=== PATIENT | male | born 1970 | race Caucasian/White ===

== ENCOUNTER 2017-05-17 08:03 | Day surgery (SDC) | payer OTHER ==
[~2017-05-17] VITALS: Ht 180.3 cm; Wt 93.0 kg
[2017-05-17] VITALS (9 sets, daily range): BP systolic 124–148; BP diastolic 77–89
[2017-05-17] MEDS ORDERED: HEParin (CATH LAB) 2,000 ML IV ONE (08:36)
[2017-05-17] MEDS ORDERED: LIDOCAINE 1% INJ 50 ML (XYLOCAINE) VIAL ONE (08:36)
[2017-05-17] MEDS ORDERED: NS IV 1000 ML 1,000 ML ONE (08:36)
[2017-05-17 09:39] LABS: HEMOGLOBIN 15.6 G/DL (13.3-17.7); RED BLOOD COUNT 5.07 10^6/uL (4.35-5.85); RED CELL DISTRIBUTION WIDTH 12.7 % (10.0-14.5); WHITE BLOOD COUNT 8.4 10^3/uL (4.3-11.0)
[2017-05-17] MEDS ORDERED: NS IV 1000 ML 1,000 ML IV SCH ×2 (09:45→13:56)
[2017-05-17] MEDS ORDERED: INFLUENZA TRIvalent 2017-2018 0.5 ML/45 MCG SYR IM ONE (10:00)
[2017-05-17] MEDS ORDERED: ASPI-586 PO (10:03)
[2017-05-17] MEDS ORDERED: METO-351 PO (10:03)
[2017-05-17 10:04] LABS: ALANINE AMINOTRANSFERASE 36 U/L (0-55); ALBUMIN 4.2 GM/DL (3.2-4.5); ALKALINE PHOSPHATASE 67 U/L (40-136); BILIRUBIN,TOTAL 0.7 MG/DL (0.1-1.0); BUN/CREATININE RATIO 14; CALCIUM 9.4 MG/DL (8.5-10.1); CARBON DIOXIDE 28 MMOL/L (21-32); CHLORIDE 103 MMOL/L (98-107); CHOLESTEROL 220 MG/DL (< 200); CREATININE SERUM 0.91 MG/DL (0.60-1.30); GFR ESTIMATED > 60; GLUCOSE 91 MG/DL (70-105); HDL CHOLESTEROL 59 MG/DL (40-60); POTASSIUM 4.2 MMOL/L (3.6-5.0); SODIUM 139 MMOL/L (135-145); TOTAL PROTEIN 7.5 GM/DL (6.4-8.2); TRIGLYCERIDES 196 MG/DL (<150); VLDL CHOLESTEROL 39 MG/DL (5-40)
[2017-05-17] MEDS ORDERED: fentaNYL INJECTION 100 MCG/2 ML AMP ONE (10:50)
[2017-05-17] MEDS ORDERED: MIDAZOLAM 5 MG/5 ML (VERSED) VIAL ONE (10:50)
[2017-05-17] MEDS ORDERED: diphenhydrAMINE 50 MG/ML INJ (BENADRYL) ONE (10:50)
--- NOTE | 2017-05-17 11:27 | Cardiac Procedure Note-CS/ASA ---
Pre-Procedure Note Pre-Op Procedure Note H&P Reviewed The H&P was reviewed, patient examined and no changes noted. Date H&P Reviewed: May 17, 2017 Time H&P Reviewed: : Conscious Sedation Pre-Proced Time Reviewed: ASA Class: 3 Airway Mallampati Classification: (ho-chunk appropriate class) I. II. III, IV Lungs Heart ASA score ASA 1: a normal healthy patient ASA 2: a patient with a mild systemic disease (mid diabetes, controlled hypertension, obesity ASA 3: a patient with a severe systemic disease that limits activity (angina , COPD, prior Myocardial infarction) ASA 4: a patient with an incapacitating disease that is a constant threat to life (CHF, renal failure) ASA 5: a moribund patient not expected to survive 24 hrs. (ruptured aneurysm) ASA 6: a declared brain patient whose organs are being harvested. For emergent operations, add the letter E after the classification Grade 2 Sedation Plan: Analgesia, Amnesia, Plan communicated to team members, Discussed options with patient/fam, Discussed risks with patient/fam Note The patient is an appropriate candidate to undergo the planned procedure, sedation, and anesthesia. The patient immediately re-assessed prior to indication. ELKE COYLE MD FACP FAC CCDS May 17, 2017 11:27
[2017-05-17] MEDS ORDERED: PATIENT MAY USE OWN MEDS, ALL PO SCH (14:00)
[2017-05-17] MEDS ORDERED: FURO40TA4 PO (14:04)
[2017-05-17] MEDS ORDERED: POTA10TA PO (14:04)
--- NOTE | 2017-05-17 14:05 | Discharge Inst-Post CATH ---
Discharge Inst-CATH Post Cardiac Cath D/C Inst Follow Up/Plan F/u with Dr Gaston in one week CARDIAC CATH DISCHARGE INSTRUCTIONS *Hold Metformin for 48 hours post heart cath. ACTIVITY * Go Home directly and rest. * Limit activity of the leg (or wrist if it was used) for 7 days including aerobics, swimming, jogging, bicycling, etc. * Restrict stair-climbing for 7 days if possible, if not, climb up with your non -cath leg, then bring together on the same step. * Avoid lifting, pushing, pulling or excessive movement of the affected extremity for 7 days. * Customary sexual activity may be resumed after 2 days-use caution not to use a position that strains or causes pain to the affected extremity. * No driving for 24 hours. * NO SMOKING. * Avoid straining for bowel movements for 7 days. * Gentle walking on level ground is allowed. * Returning to work will depend on the type of procedure and the results. Your doctor will discuss this with you. CALL YOUR DOCTOR FOR ANY OF THE FOLLOWING: *If bleeding from the puncture site occurs- Apply gentle pressure to site with clean cloth and call your doctor or EMS. * If a knot or lump forms under the skin, increases in size, or causes pain. * If bruising appears to be worsening or moving further down your leg instead of disappearing. * Temperature above 101 F. CARE OF YOUR GROIN INCISION; * Bruising or purple discoloration of the skin near the puncture site is common. * You may shower only, no bathtub bathing for 5 days. Be careful to avoid slipping as your leg may feel stiff. * If a closure device was used on your femoral artery, please see the attached guide regarding care of the device and your leg. * REMOVE the dressing from your groin the next day after your procedure in the shower. CARE OF YOUR WRIST INCISION; * Bruising or purple discoloration of the skin near the puncture site is common. * You may shower. * DO NOT submerge wrist. * Remove dressing in 24 hours. ELKE GASTON MD [facility] CCDS May 17, 2017 14:05
--- NOTE | 2017-05-17 14:05 | Discharge Inst-Cardiology ---
Discharge Inst-Cardiac Discharge Medications New Medications: Furosemide (Furosemide) 40 Mg Tablet 40 MG PO DAILY PRN for SHORTNESS OF BREATH, #30 TAB 3 Refills Potassium Chloride (K-Tab ER) 10 Meq Tablet.er 10 MEQ PO DAILY PRN for take if you take furosemide, #30 TAB 3 Refills Continued Medications: Aspirin (Aspir 81) 81 Mg Tablet.dr 81 MG PO DAILY, TAB Metoprolol Succinate (Toprol Xl) 25 Mg Tab.er.24h 25 MG PO DAILY, TAB Orders-Post D/C & Referrals Pneu Vac Indicated: Yes ELKE COYLE MD FACP FAC CCDS May 17, 2017 14:05
--- NOTE | 2017-05-17 14:29 | CARDIAC CATHETERIZATION ---
DATE OF SERVICE: 05/17/2017 PRIMARY PHYSICIAN: Natalia Rodrigues MD The patient is a 47-year-old man who has had relatively nonspecific symptoms in the recent past. He was noted to have a cardiac murmur by Dr. Rodrigues. Echocardiography showed posterior mitral valve prolapse and significant mitral regurgitation. Cardiac catheterization was carried out today after having obtained an informed consent. PROCEDURE: He was brought to the cardiac catheterization laboratory in a fasting state. Right groin was prepared and draped in usual sterile fashion. 1% Lidocaine local anesthesia. Modified Seldinger technique used to advance a 5-Lao sheath in the right femoral artery and a 7-Lao sheath into the right femoral vein. We first carried out right heart catheterization. We advanced a 7-Lao [place]-Mayra catheter to the pulmonary artery and pulmonary artery pressure was measured. We measured pulmonary wedge pressure, right ventricular pressure and right atrial pressure. We carried out cardiac output measurement using thermodilution. We measured oxygen saturation in various heart chambers. The [place]-Mayra catheter was then removed. We used the arterial sheath to advance a 5-Lao pigtail catheter into the left ventricle. Left ventricular pressures were measured. Left ventricular angiography was carried out. The catheter was pulled back into the aortic arch and aortic arch angiography was performed. We then used a 5-Lao JL4 catheter for left coronary angiography and 5-Lao JR4 for right coronary angiography. Following removal of the diagnostic catheters, angiography of the right femoral artery was carried out through the sheath. Mynx was used to achieve hemostasis, used to achieve arterial hemostasis. Manual pressure was achieved venous hemostasis. Initially, he tolerated the procedure well. HEMODYNAMICS: Pulmonary artery pressure is 32/16 with a mean of 22 mmHg. Mean pulmonary wedge pressure is 14 mmHg. Right ventricular pressure is 36/11. Mean right atrial pressure is 8 mmHg. Cardiac output by a thermodilution is 5.15 with a thermodilution cardiac index of 2.42. Pulmonary vascular resistance is 1.35 Wood units. Left ventricular end-diastolic pressure at baseline is 17 mmHg. There was no significant pressure gradient on pullback across the aortic valve. LEFT VENTRICULAR ANGIOGRAPHY: Left ventricular angiography was carried out in the right anterior oblique and the left anterior oblique projections. Global left ventricular systolic function is normal. Left ventricular ejection fraction is approximately 65%. There is 3 to 4+ mitral regurgitation (on a scale of four). AORTIC ARCH ANGIOGRAPHY: Aortic arch angiography does not indicate any thoracic aortic aneurysm, dissection or enlargement. Neck arteries, to the extent visualized, do not exhibit any significant disease. CORONARY ANGIOGRAPHY: Left main coronary artery, left anterior descending artery, left circumflex artery, and right coronary artery are all angiographically normal. CONCLUSIONS: 1. Moderately severe to severe mitral regurgitation. 2. Angiographically normal coronary arteries. 3. Normal global left ventricular systolic function with ejection fraction of 65%. 4. Mild to moderate elevation of left ventricular end-diastolic pressure. 5. Mild elevation of pulmonary wedge pressure. 6. Borderline pulmonary hypertension. DISCUSSION AND RECOMMENDATIONS: Based on results of the study, we recommend consideration of mitral valve repair. This issue is being discussed with him and his family. Job ID: [id number] DocumentID: [id number] Dictated Date: 05/17/2017 12:32:38 Stain Dipper Date: 05/17/2017 14:28:59 Dictated By: ELKE COYLE MD, MA, FACP, FACC, MTDD
== END 2017-05-17 16:10 | disposition home or self-care (01) ==
LOC: CATH 08:03 → ICU 12:19 → CATH 16:10
PROVIDERS: ATTEND Nurse Practitioner Family
DX: I34.0 Nonrheumatic mitral (valve) insufficiency (principal); I34.1 Nonrheumatic mitral (valve) prolapse; G47.33 Obstructive sleep apnea (adult) (pediatric); E66.3 Overweight; Z68.28 Body mass index [BMI] 28.0-28.9, adult
CPT/HCPCS: 36221; 36415; 80053; 80061; 85027; 85610; 85730; 87081; 93460

== ENCOUNTER → 2018-03-08 | Outpatient (CLI) | payer OTHER ==
[~2018-03-08] MED LIST: ASPI-586 PO; FURO40TA4 PO; METO-351 PO; POTA10TA PO
== END ==
LOC: CARD 07:53
PROVIDERS: ATTEND Internal Medicine Cardiovascular Disease
DX: I34.1 Nonrheumatic mitral (valve) prolapse (principal); I34.0 Nonrheumatic mitral (valve) insufficiency; I27.21 Secondary pulmonary arterial hypertension; G47.33 Obstructive sleep apnea (adult) (pediatric); R53.83 Other fatigue; R00.2 Palpitations
CPT/HCPCS: 93225; 93226

== ENCOUNTER → 2018-04-03 | Outpatient (CLI) | payer OTHER | LOC: CARD 13:05 | PROVIDERS: ATTEND Internal Medicine Cardiovascular Disease | DX: R00.2 Palpitations (principal); I34.1 Nonrheumatic mitral (valve) prolapse; I34.0 Nonrheumatic mitral (valve) insufficiency; I27.20 Pulmonary hypertension, unspecified; R53.83 Other fatigue; G47.33 Obstructive sleep apnea (adult) (pediatric) | CPT/HCPCS: 93306 ==

== ENCOUNTER → 2019-12-22 | Outpatient (CLI) | payer BC, OTHER | LOC: CARD 11:30 | PROVIDERS: ATTEND Internal Medicine Cardiovascular Disease | DX: I34.0 Nonrheumatic mitral (valve) insufficiency (principal); I51.7 Cardiomegaly; Z98.890 Other specified postprocedural states | CPT/HCPCS: 93306 ==

== ENCOUNTER → 2019-12-23 | Outpatient (CLI) | payer BC, OTHER ==
[~2019-12-23] VITALS: Ht 182 cm; Wt 92.0 kg
[2019-12-23] MEDS: CATHETER FLUSH 10 ML SYR IV PRN ×3 (08:20→08:30)
[2019-12-23 09:45] VITALS: BP 126/84
--- NOTE | 2019-12-24 14:12 | STRESS TEST ---
DATE OF SERVICE: 12/23/2019 RESTING AND POST EXERCISE TECHNETIUM-99M TETROFOSMIN SPECT CT IMAGING ORDERING PHYSICIAN: Dr. Gaston. PRIMARY PHYSICIAN: Dr. Rodrigues. CLINICAL DIAGNOSIS: Chest discomfort. Baseline images were carried out after injection of 10.1 mCi of technetium-99m Tetrofosmin. Subsequently, exercise was carried out on a treadmill. Nicolas protocol was employed. Heart rate response to exercise was normal. Blood pressure response to exercise was hypertensive. There is considerable baseline artifact with exercise. There does not appear to be significant ST segment depression. The electrocardiogram shows a right bundle branch block pattern throughout the study. No significant arrhythmia is seen. After the patient had attained 85% of maximum predicted heart rate, 30.5 mCi of technetium-99m Tetrofosmin were injected and the exercise was continued for another minute. Test was stopped on account of fatigue. The patient attained 92% of maximum predicted heart rate and 10.5 METS of workload. Heart rate and blood pressure product [place] [address]. He did not report chest discomfort. Review of images at rest and following stress does not indicate any distinct perfusion defects consistent with significant myocardial ischemia or infarction. Gated images show normal global left ventricular systolic function without any distinctive regional wall motion abnormalities. Left ventricular ejection fraction is calculated to be 46%, but appears to be subjectively higher than that. Left ventricular end diastolic volume is 79 mL. TID is absent (1.01). CONCLUSIONS: 1. No evidence of significant myocardial ischemia or infarction on this study. 2. No significant regional wall motion abnormality. 3. Well preserved global left ventricular systolic function. 4. Left ventricular ejection fraction is calculated to be 46%, but appears to be subjectively higher than that. Job ID: [id number] DocumentID: [id number] Dictated Date: 12/24/2019 13:18:40 Process Safety Manager Date: 12/24/2019 14:10:20 Dictated By: ELKE GASTON MD, MA, FACP, FACC,
== END ==
LOC: CARD 07:42
PROVIDERS: ATTEND Internal Medicine Cardiovascular Disease
DX: R07.9 Chest pain, unspecified (principal); R06.02 Shortness of breath; Z98.890 Other specified postprocedural states
CPT/HCPCS: 78452; 93017; A9502

== ENCOUNTER → 2022-02-28 | Outpatient (CLI) | payer BC ==
[~2022-02-28] MED LIST changes: +CATHETER FLUSH 10 ML SYR IVP PRN; +REGADENOSON 0.4 MG/5 ML SYR (LEXISCAN) IV ONE
[2022-02-28 12:45] VITALS: BP 146/97
--- NOTE | 2022-03-02 13:48 | STRESS TEST ---
DATE OF SERVICE: 02/28/2022 RESTING AND POST REGADENOSON TECHNETIUM-99M TETROFOSMIN SPECT CT IMAGING Baseline images were carried out after injection of 10.4 mCi of technetium-99m Tetrofosmin. This was followed by 0.4 mg regadenoson and 30.1 mCi of technetium-99m Tetrofosmin for stress imaging. The electrocardiogram showed sinus rhythm at baseline. It did not change significantly with the regadenoson infusion. Infrequent isolated premature ventricular contractions were seen. He reported some shortness of breath following regadenoson infusion, which resolved in a few minutes. Review of images at rest and following stress does not indicate any distinct perfusion defects consistent with significant myocardial ischemia or infarction. There appears to be mild cardiomegaly. Global left ventricular systolic function appears to be mildly impaired. There is mild global hypokinesis and the left ventricular ejection fraction is calculated to be 41%. CONCLUSIONS: 1. Mild impairment global left ventricular systolic function, mild global hypokinesis, mild cardiomegaly and a calculated ejection fraction of 41%. 2. No evidence of any significant myocardial ischemia or infarction on this study. Job ID: [id number] DocumentID: [id number] Dictated Date: 03/02/2022 09:34:38 Hose Inspector And Patcher Date: 03/02/2022 13:47:42 Dictated By: ELKE COYLE MD, MA, FACP, FACC,
== END ==
LOC: CARD 10:30
PROVIDERS: ATTEND Nurse Practitioner Family
DX: I51.7 Cardiomegaly (principal); Z98.890 Other specified postprocedural states
CPT/HCPCS: 78452; 93017; A9502; C8929; 93306

== ENCOUNTER 2023-02-21 11:00 | Outpatient (CLI) | payer BC ==
[~2023-02-21 11:00] MED LIST changes: -CATHETER FLUSH 10 ML SYR IVP PRN; +POTA-185 PO; -POTA10TA PO; -REGADENOSON 0.4 MG/5 ML SYR (LEXISCAN) IV ONE
== END 2023-02-21 11:13 ==
LOC: RT 11:00 → SLEEP 11:13
PROVIDERS: ATTEND Otolaryngology Otolaryngology/Facial Plastic Surgery
DX: R06.81 Apnea, not elsewhere classified (principal); I25.9 Chronic ischemic heart disease, unspecified
CPT/HCPCS: G0399